=== PATIENT | male | born 1960 | race Caucasian/White ===

== ENCOUNTER 2017-12-08 10:57 | Day surgery (SDC) | payer OTHER ==
[~2017-12-08] VITALS: Ht 175.3 cm; Wt 99.8 kg
[~2017-12-08 10:57] MED LIST: ALEVE220 MG PO; ASPIR-TRIN325 M1 PO; LEXAPRO20 MG PO; SYNTHROID PO; SYNTHROID175 MCG PO; WELLBUTRIN SR100 MG PO
[2017-12-08 11:18] VITALS: BP 126/85
[2017-12-08 15:52] VITALS: BP 134/78
[2017-12-08 16:42] VITALS: BP 130/70
== END 2017-12-08 16:59 | disposition home or self-care (01) ==
LOC: SDC 10:57
DX: M19.041 Primary osteoarthritis, right hand (principal); M25.741 Osteophyte, right hand; E03.9 Hypothyroidism, unspecified
CPT/HCPCS: 93005; C1769; J0690; J1170; J2405; J2765; J3010; S0020